=== PATIENT | male | born 2000 | race Caucasian/White ===

== ENCOUNTER 2020-01-24 18:10 | Emergency (ER) | payer SELFPAY ==
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
[2020-01-24 19:57] LABS: ABSOLUTE EOSINOPHILS # (AUTO) 0.1 10^3/uL (0.0-0.6); ABSOLUTE LYMPHOCYTES (AUTO) 3.1 10^3/uL (0.5-4.7); ABSOLUTE NEUT (AUTO) 10.4 10^3/uL (1.7-8.2); BASOPHILS % (AUTO) 0.3 % (0-2); EOSINOPHILS % (AUTO) 0.6 % (0-6); HEMATOCRIT 45.5 % (37.9-51.0); HEMOGLOBIN 15.7 g/dL (13.5-17.0); MEAN CORPUSCULAR HEMOGLOBIN 31.5 pg (27.0-33.4); MEAN CORPUSCULAR HGB CONC 34.6 g/dL (32.0-36.0); MEAN CORPUSCULAR VOLUME 91 fl (80-97); MONOCYTES % (AUTO) 6.7 % (3-13); PLATELET COUNT 301 10^3/uL (150-450); RED CELL DISTRIBUTION WIDTH 12.4 % (11.5-14.0); SEGMENTED NEUTROPHILS % (AUTO) 71.4 % (42-78); TOTAL CELLS COUNTED % (AUTO) 100 %; WHITE BLOOD COUNT 14.6 10^3/uL (4.0-10.5)
[2020-01-24 19:59] LABS: APPEARANCE,URINE CLEAR; BILIRUBIN,URINE NEGATIVE (NEGATIVE); COLOR,URINE STRAW; GLUCOSE, URINE NEGATIVE (NEGATIVE); KETONES,URINE NEGATIVE (NEGATIVE); LEUKOCYTE ESTERASE,URINE NEGATIVE (NEGATIVE); NITRITE,URINE NEGATIVE (NEGATIVE); PROTEIN,URINE NEGATIVE (NEGATIVE); URINE SPECIFIC GRAVITY 1.004; UROBILINOGEN,URINE NEGATIVE mg/dL (<2.0)
[2020-01-24 20:14] LABS: ALBUMIN 5.2 g/dL (3.5-5.0); ALCOHOL 110 mg/dL (NONE DETECTED); ALKALINE PHOSPHATASE 46 U/L (38-126); ANION GAP 14 (5-19); ASPARTATE AMINO TRANSFERASE 20 U/L (17-59); BILIRUBIN,DIRECT 0.2 mg/dL (0.0-0.4); BILIRUBIN,TOTAL 1.1 mg/dL (0.2-1.3); BLOOD UREA NITROGEN 13 mg/dL (7-20); CALCIUM 9.9 mg/dL (8.4-10.2); CARBON DIOXIDE 24 mmol/L (22-30); CHLORIDE 104 mmol/L (98-107); GLUCOSE 85 mg/dL (75-110); POTASSIUM 4.1 mmol/L (3.6-5.0); TOTAL PROTEIN 8.4 g/dL (6.3-8.2)
[2020-01-24 20:21] LABS: ACETAMINOPHEN < 10 ug/mL (10-30); SALICYLATE < 1.0 mg/dL (2.0-20.0)
[2020-01-24 20:27] LABS: URINE AMPHETAMINES SCREEN NEGATIVE; URINE BARBITURATES SCREEN NEGATIVE; URINE BENZODIAZEPINES SCREEN NEGATIVE; URINE COCAINE SCREEN NEGATIVE; URINE MARIJUANA (THC) SCREEN NEGATIVE; URINE METHADONE SCREEN NEGATIVE; URINE PHENCYCLIDINE SCREEN NEGATIVE
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
[2020-01-24] MEDS ORDERED: LORAZEPAM 0.5 MG TABLET PO ONE (21:24)
--- NOTE | 2020-01-25 10:37 | EKG REPORT ---
SEVERITY:- ABNORMAL ECG - SINUS RHYTHM SHIVANI, CONSIDER BIATRIAL ABNORMALITIES INFERIOR Q WAVES, PROBABLY NORMAL VARIATION ST ELEVATION: NON SPECIFIC : Confirmed by: Angeline Navarro MD 25-Jan-2020 10:36:44
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
--- NOTE | 2020-01-25 13:50 | ER Document Report ---
Doctor's Note Notes: 01/25/20 13:49 PHYSICAL EXAMINATION: GENERAL: Appears well, healthy, well-nourished, no acute distress. LUNGS: Equal breath sounds bilaterally and clear to auscultation. No wheezes rales or rhonchi. CARDIOVASCULAR: S1-S2, regular rate, regular rhythm. Radial pulses 2+, normal. ABDOMEN: Normoactive bowel sounds. Soft, nontender, no guarding, no rebound tenderness, and no masses palpated. PSYCH: Normal mood, normal affect. Patient denies any suicidal or homicidal ideation. Dr. Iqbal evaluated the patient and spoke with the patient's mother. There is a plan in place. At this time, mental health has evaluated him and they have cleared him on the mental health perspective. Follow-up precautions were given. Verbal discharge instructions were given to the patient. They verbalized understanding. They are stable for discharge.
[2020-01-25 14:12] VITALS: BP 137/76
== END 2020-01-25 14:12 | disposition home or self-care (01) ==
LOC: ER 18:10
DX: R45.851 Suicidal ideations (principal); F32.9 Major depressive disorder, single episode, unspecified; F10.129 Alcohol abuse with intoxication, unspecified; Z65.8 Other specified problems related to psychosocial circumstances
CPT/HCPCS: 36415; 80053; 80307; 81001; 85025; 93005; 93010; 99285

== ENCOUNTER 2020-04-22 06:51 | Emergency (ER) | payer OTHER ==
[2020-04-22] MEDS ORDERED: KETOROLAC TROMETHAMINE 60 MG/2 ML SDV IM ONE (08:27)
--- NOTE | 2020-04-22 08:29 | ER Document Report ---
ED General - General Chief Complaint: Shoulder Pain Stated Complaint: LEFT SHOULDER PAIN Time Seen by Provider: 04/22/20 08:10 - HPI Notes: 19-year-old male with no significant past medical history to the emergency department with complaints of left shoulder pain that radiates at the superior border of his shoulder Gorder and to the left side of the neck that began last night while he was drying his hair with a towel. He states that he felt instant pain and spasm while he was using a towel to dry his hair. He denies any falls, trauma to the shoulder. He does state that he works at [employer]. and will lift up to 100 pounds and he had been working yesterday. He states that he does not think that his workload was any heavier than normal. He denies any nausea, vomiting, chest pain, shortness of breath. States it hurts when he turns his neck to the left and also to the right. He states he can go only a certain amount of the way until he starts to feel the pain. He tried to put icy hot on to the shoulder with only minimal benefit. He has not taken any medicine prior to arrival. - Related Data Allergies/Adverse Reactions: No Known Allergies Allergy (Verified 01/24/20 19:06) Past Medical History - General Information source: Patient - Social History Smoking Status: Never Smoker Frequency of alcohol use: None Drug Abuse: None Family History: Reviewed & Not Pertinent Patient has homicidal ideation: No Psychiatric Medical History: Reports: Hx Depression Review of Systems - Review of Systems Constitutional: denies: Chills, Fever EENT: No symptoms reported Cardiovascular: denies: Chest pain, Palpitations, Heart racing, Orthopnea, Dyspnea, Syncope, Dizziness, Lightheaded Respiratory: denies: Cough, Short of breath Gastrointestinal: denies: Abdominal pain, Diarrhea, Nausea, Vomiting Genitourinary: No symptoms reported Musculoskeletal: Joint pain - Left shoulder pain and left superior border shoulder girdle pain and spasm Skin: No symptoms reported Hematologic/Lymphatic: No symptoms reported Neurological/Psychological: No symptoms reported -: Yes All other systems reviewed and negative Physical Exam - Vital signs Vitals: Temp Pulse Resp BP Pulse Ox 97.4 F 84 18 135/81 H 97 04/22/20 06:58 04/22/20 06:58 04/22/20 06:58 04/22/20 06:58 04/22/20 06:58 Interpretation: Normal Notes: PHYSICAL EXAMINATION: GENERAL: Well-appearing, well-nourished and in no acute distress. HEAD: Atraumatic, normocephalic. EYES: Pupils equal round and reactive to light, extraocular movements intact, sclera anicteric, conjunctiva are normal. ENT: nares patent, oropharynx clear without exudates. Moist mucous membranes. NECK: supple without lymphadenopathy; there is no midline palpation to the midline cervical spine. There is no step-off or deformity.'s please see extremities for further discussion of left trapezius muscle. LUNGS: Breath sounds clear to auscultation bilaterally and equal. No wheezes r ales or rhonchi. HEART: Regular rate and rhythm without murmurs ABDOMEN: Soft, nontender, normoactive bowel sounds. No guarding, no rebound. No masses appreciated. EXTREMITIES: There is tenderness to palpation over the left shoulder glenohumeral joint. There is no step-off or deformity. There is no deformity at the AC joint on the left side. There is increased pain along the joint and along the superior border of the left trapezius with forward flexion and AB duction of the left shoulder joint. There is no tenderness to palpation over the left elbow, wrist, hand. Handgrip is 5 out of 5 bilaterally. There is no snuffbox tenderness. Radial pulses are intact and equal. Patient does have preserved 5 out of 5 strength against resistance in all range of motion of the left shoulder. There is noted muscle spasm and tenderness along the superior border of the left trapezius muscle and into its insertion into the left side of the neck. Patient does have a little bit of decreased range of motion looking over his left shoulder with rotation of the neck because he starts to have pain. NEUROLOGICAL: No focal neurological deficits. Moves all extremities spontaneously and on command. PSYCH: Normal mood, normal affect. SKIN: Warm, Dry, normal turgor, no rashes or lesions noted. Course - Re-evaluation Re-evalutation: 04/22/20 09:04 Impression: Left trapezius strain, left shoulder strain. X-rays reassuring for no acute bony abnormality. Will send patient home with NSAIDs, muscle relaxant, Medrol Dosepak. We will have him abstain from lifting anything heavier than 10 pounds for the next 3 days. Patient agrees with the plan. - Vital Signs Vital signs: Temp Pulse Resp BP Pulse Ox 97.4 F 84 18 135/81 H 97 04/22/20 06:58 04/22/20 06:58 04/22/20 06:58 04/22/20 06:58 04/22/20 06:58 - Diagnostic Test Radiology reviewed: Image reviewed, Reports reviewed Discharge - Discharge Clinical Impression: Muscle spasm Strain of left trapezius muscle Qualifiers: Encounter type: initial encounter Qualified Code(s): S46.812A - Strain of other muscles, fascia and tendons at shoulder and upper arm level, left arm, initial encounter Left shoulder strain Qualifiers: Encounter type: initial encounter Qualified Code(s): S46.912A - Strain of uns pecified muscle, fascia and tendon at shoulder and upper arm level, left arm, initial encounter Condition: Stable Disposition: HOME, SELF-CARE Instructions: Muscle Strain ([facility]) Additional Instructions: No lifting greater than 10 pounds for the next 3 days. Take medicine as prescribed. Return if you have worsening symptoms. Please follow-up with your primary care physician. Prescriptions: Methylprednisolone [Medrol Dosepack (4 mg/Tab) 21 Tab/Dosepak] 4 mg PO ASDIR PRN #21 tab.ds.pk PRN Reason: Methocarbamol [Robaxin 500 mg Tablet] 500 mg PO QID #20 tablet Diclofenac Sodium [Voltaren 25 Mg Tablet] 25 mg PO BID #20 tablet.dr Forms: Return to Work Referrals: [facility] [Provider Group] - Follow up in 1 week
--- NOTE | 2020-04-22 08:57 | RADIOLOGY REPORT (SQ) ---
EXAM DESCRIPTION: SHOULDER LEFT 2 OR MORE VIEWS IMAGES COMPLETED DATE/TIME: 04/22/2020 8:43 am REASON FOR STUDY: shoulder pain COMPARISON: None. NUMBER OF VIEWS: Three views. TECHNIQUE: Internal rotation, external rotation, and Y view images acquired of the left shoulder. LIMITATIONS: None. FINDINGS: MINERALIZATION: Normal. BONES: No acute fracture. No worrisome bone lesions. JOINTS: No glenohumeral dislocation. VISUALIZED LUNGS AND RIBS: No pneumothorax. No rib fracture. SOFT TISSUES: No radiopaque foreign body. OTHER: No other significant finding. IMPRESSION: NEGATIVE STUDY OF THE LEFT SHOULDER. NO RADIOGRAPHIC EVIDENCE OF ACUTE INJURY. TECHNICAL DOCUMENTATION: JOB ID: [id number] 2010 [employer]- All Rights Reserved Reading location - IP/workstation name: [id number]
[2020-04-22 09:26] VITALS: BP 127/78
== END 2020-04-22 09:25 | disposition home or self-care (01) ==
LOC: ER 06:51
DX: S46.912A Strain of unspecified muscle, fascia and tendon at shoulder and upper arm level, left arm, initial encounter (principal); S29.012A Strain of muscle and tendon of back wall of thorax, initial encounter; X58.XXXA Exposure to other specified factors, initial encounter; M62.830 Muscle spasm of back
CPT/HCPCS: 99284; 96372; 73030; J1885

== ENCOUNTER 2020-05-22 22:38 | Emergency (ER) | payer OTHER ==
[2020-05-23] MEDS ORDERED: ACETAMINOPHEN 325 MG TABLET PO ONE (00:22)
--- NOTE | 2020-05-23 00:25 | ER Document Report ---
ED Medical Screen (RME) - General Chief Complaint: Flu Symptoms Stated Complaint: SHORTNESS OF BREATH,FEVER, LOSS OF TASTE Time Seen by Provider: 05/23/20 00:17 Mode of Arrival: Ambulatory Information source: Patient Notes: HPI; 19-year-old male presents to the emergency room complaining of a posterior headache, cough, fever of 101 with nausea and 3-4 episodes diarrhea daily for the past 2 to 3 days. Took Tylenol with minimal relief. Denies any COVID-19 exposure. Denies any bad food. No recent antibiotics. No other ill contacts. PE: Alert and oriented x3. Lungs: Clear to auscultation without rales, rhonchi, wheezes. Heart: Tachycardic without murmurs, rubs, gallops. I have greeted and performed a rapid initial assessment of this patient. A comprehensive ED assessment and evaluation of the patient, analysis of test results and completion of the medical decision making process will be conducted by additional ED providers. I have specifically instructed the patient or fam clarisse members with the patient to immediately return to any nursing staff should anything change in the patient's condition or with their chief complaint. TRAVEL OUTSIDE OF THE [place] IN LAST 30 DAYS: No - Related Data Allergies/Adverse Reactions: No Known Allergies Allergy (Verified 01/24/20 19:06) Past Medical History Psychiatric Medical History: Reports: Hx Depression Physical Exam - Vital signs Vitals: Temp Pulse Resp BP Pulse Ox 98.3 F 104 H 18 133/80 H 94 05/22/20 22:48 05/22/20 22:48 05/22/20 22:48 05/22/20 22:48 05/22/20 22:48 Course - Vital Signs Vital signs: Temp Pulse Resp BP Pulse Ox 98.3 F 104 H 18 133/80 H 94 05/22/20 22:48 05/22/20 22:48 05/22/20 22:48 05/22/20 22:48 05/22/20 22:48
--- NOTE | 2020-05-23 01:32 | RADIOLOGY REPORT (SQ) ---
CLINICAL HISTORY: cough COMPARISON: None. TECHNIQUE: XR CHEST 1 VIEW 05/23/2020 12:22 AM [employer] FINDINGS: Cardiac silhouette is normal in size. Lungs are clear without consolidation, atelectasis, mass or edema. There is no pleural effusion. There is no pneumothorax. There are no acute osseous findings. IMPRESSION: Clear lungs.
[2020-05-23 02:54] VITALS: BP 131/80
--- NOTE | 2020-05-23 04:11 | ER Document Report ---
HPI - HPI Time Seen by Provider: 05/23/20 00:17 Pain Level: 1 Context: Patient is a 19-year-old male who presents to the emergency department with a chief complaint of a headache, cough, fever, diarrhea, nausea for the past 2 to 3 days. Patient states that he needs to be tested for COVID-19 for his work. Denies any shortness of breath or difficulty breathing. That he just wants to be tested for COVID-19 wants to go home. - ROS Systems Reviewed and Negative: Yes All other systems reviewed and negative - NEURO Neurology: REPORTS: Headache - CARDIOVASCULAR Cardiovascular: DENIES: Chest pain - RESPIRATORY Respiratory: REPORTS: Coughing - GASTROINTESTINAL Gastrointestinal: REPORTS: Nausea, Diarrhea. DENIES: Abdominal Pain, Patient vomiting, Black / Bloody Stools - DERM Skin Color: Normal Skin Problems: None Past Medical History - General Information source: Patient - Social History Smoking Status: Never Smoker Family History: Reviewed & Not Pertinent Psychiatric Medical History: Reports: Hx Depression Vertical Provider Document - CONSTITUTIONAL Agree With Documented VS: Yes Exam Limitations: No Limitations General Appearance: No Apparent Distress - INFECTION CONTROL TRAVEL OUTSIDE OF THE [place] IN LAST 30 DAYS: No - HEENT HEENT: Atraumatic, Normocephalic, PERRLA - NECK Neck: Normal Inspection - RESPIRATORY Respiratory: Breath Sounds Normal, No Respiratory Distress - CARDIOVASCULAR Cardiovascular: Regular Rate, Regular Rhythm Pulses: Normal: Radial - GI/ABDOMEN Gastrointestinal: Abdomen Soft, Abdomen Non-Tender - MUSCULOSKELETAL/EXTREMETIES Musculoskeletal/Extremeties: FROM - NEURO Level of Consciousness: Awake, Alert, Appropriate - DERM Integumentary: Warm, Dry, No Rash Course - Re-evaluation Re-evalutation: 05/23/20 04:10 Chest x-ray is unremarkable. Lung sounds are clear. The patient was evaluated during the global COVID-19 pandemic and that diagnosis was suspected/considered upon their initial presentation. Their evaluation, treatment and testing was consistent with current guidelines for patients who present with complaints or symptoms that may be related to COVID-19. Follow-up precautions were given. Verbal discharge instructions were given to the patient. They verbalized understanding. They are stable for discharge. - Vital Signs Vital signs: Temp Pulse Resp BP Pulse Ox 98.5 F 92 18 131/80 H 95 05/23/20 02:52 05/23/20 02:52 05/23/20 02:52 05/23/20 02:52 05/23/20 02:52 - Laboratory Results Critical Laboratory Results Reviewed: No Critical Results - Radiology Results Critical Radiology Results Reviewed: No Critical Results Discharge - Discharge Clinical Impression: Cough, Person under investigation for COVID-19 Condition: Stable Disposition: HOME, SELF-CARE Instructions: COVID-19 Guidance for Persons Under Investigation Additional Instructions: As a person under investigation for COVID-19, the [facility] (division on public health) advises you to adhere to the following guidance until your test results are reported to you. If your test result is positive, you will receive additional information from your provider and your local health department at that time. Remain at home until you are cleared by the health provider or public health authorities. Keep a log of visitors to your home, notify any visitors to your home of your isolation status. If you plan to move to a new address or leave the [facility], notify the local health department in your County. Call your Doctor or seek care if you have an urgent medical need. Before seeking medical care, call him to get instructions from the provider before arriving at the medical office, clinic, or hospital. Notify them that you are being tested for the virus (COVID-19) so that arrangements can be made, as necessary, to prevent transmission to others in the healthcare setting. Next, notify the local health department in your county.
== END 2020-05-23 04:25 | disposition home or self-care (01) ==
LOC: ER 22:38
DX: R51.9 Headache, unspecified (principal); R05 Cough; R50.9 Fever, unspecified; R19.7 Diarrhea, unspecified; R11.0 Nausea; Z20.828 Contact with and (suspected) exposure to other viral communicable diseases
CPT/HCPCS: 99284; 87635; 71045; C9803